=== PATIENT | female | born 1980 | race Caucasian/White ===

== ENCOUNTER 2016-11-30 00:50 | Emergency (ER) | payer MEDICAID, OTHER ==
[~2016-11-30] VITALS: Ht 167.6 cm; Wt 125.8 kg
[2016-11-30 01:31] VITALS: BP 144/65
--- NOTE | 2016-11-30 06:26 | NUR ---
TO ER BED 6
--- NOTE | 2016-11-30 07:00 | NUR ---
36/F BIB SELF C/O COUGH X 1 MONTH,SOB X 2 WEEKS. PT STATES HAS SORE THROAT & BACK PAIN 01/28 WHEN PT COUGHES . DENIES N/V/D; SKIN IS PINK/WARM/DRY; AAOX4 WITH EVEN AND STEADY GAIT; BL LUNGS WHEEZING NOTED AT THIS TIME; HR EVEN AND REGULAR; PT DENIES ANY FEVER OR CP AT THIS TIME; VSS; PATIENT POSITIONED FOR COMFORT; HOB ELEVATED; BEDRAILS UP X2; BED DOWN. ER MD MADE AWARE OF PT STATUS.
[2016-11-30] MEDS: IPRATROPIUM 0.02% 0.5 MG/2.5 ML NEBU INH ONE (07:24)
[2016-11-30] MEDS: ALBUTEROL 0.083% 2.5 MG/3 ML NEBU INH ONE (07:24)
[2016-11-30 08:02] VITALS: BP 111/61
--- NOTE | 2016-11-30 08:02 | NUR ---
Patient discharged with v/s stable. Written and verbal after care instructions given and explained. Patient alert, oriented and verbalized understanding of instructions. Ambulatory with steady gait. All questions addressed prior to discharge. ID band removed. Patient advised to follow up with PMD. Rx of AZITHROMYCIN, ALBUTEROL & CLARITIN given. Patient educated on indication of medication including possible reaction and side effects. Opportunity to ask questions provided and answered.
== END 2016-11-30 08:02 | disposition home or self-care (01) ==
LOC: MED 00:50
PROC: 3E0F7GC Introduction of Other Therapeutic Substance into Respiratory Tract, Via Natural or Artificial Opening (ICD-10-PCS; principal; 2016-11-30)
DX: J20.9 Acute bronchitis, unspecified (principal)
CPT/HCPCS: 71010; 94640; 99283; J7613; J7644; Q0092

== ENCOUNTER 2017-04-16 08:34 | Emergency (ER) | payer OTHER ==
[~2017-04-16] VITALS: Ht 167.6 cm; Wt 127.0 kg
[2017-04-16 08:39] VITALS: BP 100/74
--- NOTE | 2017-04-16 09:17 | NUR ---
Patient ambulated to bed 6 with family. RN evaluating patient at bedside.
--- NOTE | 2017-04-16 09:21 | NUR ---
PATIENT PRESENTS TO ED WITH 37 YO FEMALE BIB SELF FOR COUGH FOR TWO WEEKS. . PT STATES THAT SHE WAS DIAGNOSE PREDIABETIC AND IS TAKING JANUVIA AT NIGHT . DENIES N/V/D; SKIN IS PINK/WARM/DRY; AAOX4 WITH EVEN AND STEADY GAIT; LUNGS CLEAR BL; HR EVEN AND REGULAR; PT DENIES ANY FEVER, CP, SOB AT THIS TIME; PATIENT STATES PAIN OF 0/10 AT THIS TIME; VSS; PATIENT POSITIONED FOR COMFORT; HOB ELEVATED; BEDRAILS UP X2; BED DOWN. ER MD MADE AWARE OF PT STATUS.
--- NOTE | 2017-04-16 09:30 | NUR ---
SEEN AND EVALUATED BY DR. NGUYEN AT BEDSIDE
[2017-04-16 10:26] VITALS: BP 116/71
--- NOTE | 2017-04-16 10:27 | NUR ---
Patient discharged with v/s stable. Written and verbal after care instructions given and explained. Patient alert, oriented and verbalized understanding of instructions. Ambulatory with steady gait. All questions addressed prior to discharge. ID band removed. Patient advised to follow up with PMD. Rx of AZITHROMYCIN AND DEXTROMETHORPAN given. Patient educated on indication of medication including possible reaction and side effects. Opportunity to ask questions provided and answered.
== END 2017-04-16 10:27 | disposition home or self-care (01) ==
LOC: MED 08:34
DX: J02.9 Acute pharyngitis, unspecified (principal)
CPT/HCPCS: 71010; 81002; 99283; Q0092

== ENCOUNTER 2018-04-30 21:16 | Emergency (ER) | payer OTHER ==
[~2018-04-30] VITALS: Ht 167.6 cm; Wt 122.0 kg
[2018-04-30 21:26] VITALS: BP 165/68
--- NOTE | 2018-04-30 21:30 | NUR ---
PT PROVIDED URINE AND AMBULATED TO LOBBY WITH VSS.
--- NOTE | 2018-04-30 22:57 | NUR ---
TO BED # 4 AMBULATORY , REPORT GIVEN TO RU HARRELL
--- NOTE | 2018-04-30 22:57 | NUR ---
38 Y/O F PRESENTS TO THE ED W/C/O VAGINAL BLEEDING. PT STATES, "I WAS HERE ON MONDAY AND TOLD I WAS AND I STARTED BLEEDING TODAY AROUND 2100 AND HAD INTERMITTENT CRAMPING THROUGHOUT THE DAY."PT STATES SHE HAS NOT FILLED ONE PAD WITH BLOOD YET. PT DENIES N/V/D; SKIN IS INTACT, PINK/WARM/DRY; AAOX4, PERRL, WITH EVEN AND STEADY GAIT; LUNGS CLEAR BL, BREATHING UNLABORED; HR EVEN AND REGULAR, BL PERIPHERAL PULSES PRESENT; BS ACTIVE X4, NO TENDERNESS TO PALPATION, NO HEPATOSPLENOMEGALLY PALPATED, RESONANT TO PERCUSSION; PT DENIES ANY FEVER, CP, SOB, OR COUGH AT THIS TIME; PT STATES 0/10 PAIN AT THIS TIME; VSS; PATIENT POSITIONED FOR COMFORT; HOB ELEVATED; BEDRAILS UP X2; BED DOWN.
--- NOTE | 2018-05-01 | NUR ---
PT RESTING COMFORTABLY IN BED. NO S/S OF DISTRESS NOTED
[2018-05-01 00:24] LABS: BASOPHILS % (AUTO) 0.4 % (0.0-2.0); EOSINOPHILS # (AUTO) 0.1 K/uL (0-0.4); EOSINOPHILS % (AUTO) 0.9 % (0.0-4.0); HEMATOCRIT 38.8 % (36-48); LYMPHOCYTES # (AUTO) 4.4 K/uL (2.5-16.5); LYMPHOCYTES % (AUTO) 34.7 % (20.5-51.1); MEAN CORPUSCULAR HEMOGLOBIN 29 pg (27-31); MEAN CORPUSCULAR HGB CONC 34 g/dL (33-37); MEAN CORPUSCULAR VOLUME 86.7 fL (80-94); MONOCYTES # (AUTO) 0.6 K/uL (0.8-1.0); MONOCYTES % (AUTO) 4.7 % (1.7-9.3); NEUTROPHILS # (AUTO) 7.6 K/uL (1.8-7.7); NEUTROPHILS % (AUTO) 59.3 % (42.2-75.2); PLATELET COUNT (AUTO) 300 K/uL (140-450); RED BLOOD CELL COUNT(AUTO) 4.47 MIL/uL (4.20-5.40); RED CELL DISTRIBUTION WIDTH 14.8 % (11.6-13.7); WHITE BLOOD COUNT (AUTO) 12.8 K/uL (4.8-10.8)
[2018-05-01 00:25] LABS: APPEARANCE,URINE CLOUDY (CLEAR); BILIRUBIN,URINE NEGATIVE (NEGATIVE); BLOOD, URINE 3+ (NEGATIVE); COLOR,URINE YELLOW (YELLOW); LEUKOCYTE ESTERASE ,URINE NEGATIVE (NEGATIVE); NITRITE, URINE NEGATIVE (NEGATIVE); UGLUCOSE NEGATIVE (NEGATIVE)
[2018-05-01 00:56] LABS: RBC,URINE 0-5 (RARE) /HPF (0-5); URINE AMORPHOUS URATE 4+ /HPF (None Seen); WBC,URINE 0-5 (RARE) /HPF (0-5)
[2018-05-01 01:37] VITALS: BP 152/68
--- NOTE | 2018-05-01 01:40 | NUR ---
Patient discharged with v/s stable. Written and verbal after care instructions given and explained. Patient verbalized understanding. Ambulatory with steady gait. All questions addressed prior to discharge. Advised to follow up with PMD.
== END 2018-05-01 01:37 | disposition home or self-care (01) ==
LOC: MED 21:16
DX: O20.0 Threatened abortion (principal); Z3A.01 Less than 8 weeks gestation of pregnancy; E11.9 Type 2 diabetes mellitus without complications
CPT/HCPCS: 36415; 76817; 81001; 81025; 84702; 85025; 99285; Q0092